=== PATIENT | female | born 1980 | race Caucasian/White ===

== ENCOUNTER 2018-05-09 03:56 | Inpatient (IN) | payer OTHER ==
[2018-05-09] MEDS ORDERED: Nalbuphine 10 MG/1 ML Vial IVPUSH PRN (05:19)
[2018-05-09] MEDS ORDERED: Misoprostol 200 MCG Tab PO PRN (05:19)
[2018-05-09] MEDS ORDERED: Sodium Chloride 0.9% 2.5 ML Syringe FLUSH PRN (05:19)
[2018-05-09] MEDS ORDERED: Butorphanol 1 MG/ML SDV IVPUSH PRN (05:19)
[2018-05-09] MEDS ORDERED: Sodium Chloride 0.9% 10 ML Syringe FLUSH PRN (05:19)
[2018-05-09] MEDS ORDERED: Tranexamic Acid 1,000 MG in Sodium Chloride 0.9% 100 ML IV PRN (05:19)
[2018-05-09] MEDS ORDERED: Methylergonovine 0.2 MG/1 ML Amp IM PRN ×2 (05:19→11:50)
[2018-05-09] MEDS ORDERED: Carboprost Tromethamine 250 MCG/1 ML Amp IM PRN (05:19)
[2018-05-09] MEDS ORDERED: Water For Irrigation,Sterile 1,000 ML Container IRR PRN (05:19)
[2018-05-09] MEDS ORDERED: Lidocaine 1% 50 ML MDV INJECT PRN (05:19)
[2018-05-09] MEDS ORDERED: Oxytocin/0.9 % Sodium Chloride 30 UNIT/500 ML BAG IV SCH ×2 (05:30→09:00)
[2018-05-09] MEDS ORDERED: Lidocaine HCl/EPINEPHrine 5 ML IJ ONE (06:42)
[2018-05-09] MEDS: Lactated Ringers 1,000 ML IV SCH ×2 (07:08→07:38)
[2018-05-09] MEDS ORDERED: Terbutaline 1 MG/ML SDV SUBCUT PRN (08:52)
--- NOTE | 2018-05-09 09:10 | PCM.PREANE ---
Preanesthetic Assessment - Procedure Proposed Procedure: for continuous labor epidural insertion - Anesthesia/Transfusion/Family Hx Anesthesia History: Prior Anesthesia Without Reaction (three previous labor epidurals without problems. [place] for knee surgery without problems) Family History of Anesthesia Reaction: No Transfusion History: No Prior Transfusion(s) - Review of Systems General: No Symptoms (In [id number]. 39.2weeks) Pulmonary: No Symptoms Cardiovascular: No Symptoms (GERD with ) Gastrointestinal: No Symptoms Neurological: No Symptoms Other: Reports: None - Physical Assessment NPO Status Date: 05/09/18 NPO Status Time: 03:30 (water and ice since then) Pulse: 83 (FHTs = 132) O2 Sat by Pulse Oximetry: 96 Respiratory Rate: 20 Blood Pressure: 117/81 Height: 1.75 m Weight: 86.636 kg ASA Class: 2E Mental Status: Alert & Oriented x3 Airway Class: Mallampati = 1 Dentition: Reports: Normal Dentition Thyro-Mental Finger Breadths: 2 Mouth Opening Finger Breadths: 3 ROM/Head Extension: Full Lungs: Clear to Auscultation, Normal Respiratory Effort Cardiovascular: Regular Rate, Regular Rhythm, No Murmurs - Lab Values: Laboratory Last Values WBC 8.02 K/uL (4.0-11.0) 05/09/18 05:33 RBC 3.06 M/uL (4.30-5.90) L 05/09/18 05:33 Hgb 9.6 g/dL (12.0-16.0) L 05/09/18 05:33 Hct 28.2 % (36.0-46.0) L 05/09/18 05:33 MCV 92.2 fL (80.0-98.0) 05/09/18 05:33 MCH 31.4 pg (27.0-32.0) 05/09/18 05:33 MCHC 34.0 g/dL (31.0-37.0) 05/09/18 05:33 RDW Std Deviation 43.3 fl (28.0-62.0) 05/09/18 05:33 RDW Coeff of Bella 13 % (11.0-15.0) 05/09/18 05:33 Plt Count 180 K/uL (150-400) 05/09/18 05:33 MPV 11.60 fL (7.40-12.00) 05/09/18 05:33 Nucleated RBC % 0.0 /100WBC 05/09/18 05:33 Nucleated RBCs # 0 K/uL 05/09/18 05:33 Blood Type A POSITIVE 05/09/18 05:33 Antibody Screen NEGATIVE 05/09/18 05:33 - Allergies Allergies/Adverse Reactions: Allergies Allergy/AdvReac Type Severity Reaction Status Date / Time No Known Allergies Allergy Verified 05/09/18 04:15 - Blood Blood Available: No Product(s) Available: None - Anesthesia Plan Pre-Op Medication Ordered: None - Acknowledgements Anesthesia Type Planned: Epidural (Plan: continuous labor epidural insertion. Discussed with patient and . All questions answered. 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: Musculoskeletal History: Reports: Other (See Below) Other Musculoskeletal History: Knee surgery - SUBSTANCE USE Smoking Status *Q: Never Smoker Second Hand Smoke Exposure: No Recreational Drug Use History: No - CURRENT (IN HOUSE) MEDS Current Meds: Current Medications Butorphanol Tartrate (Stadol) 1 mg IVPUSH Q1H PRN PRN Reason: Pain Carboprost Tromethamine (Hemabate Ds) 250 mcg IM ASDIRECTED PRN PRN Reason: Post Hemorrhage Tranexamic Acid 1,000 mg/ (Sodium Chloride) 110 mls @ 660 mls/hr IV ONETIME PRN PRN Reason: Bleeding Lactated Ringer's (Ringers, Lactated) 1,000 mls @ 150 mls/hr IV ASDIRECTED HAKEEM Last Admin: 05/09/18 07:38 Dose: 150 mls/hr Oxytocin/Sodium Chloride (Oxytocin 30 Unit/500 Ml-Ns) 30 unit in 500 mls @ 500 mls/hr IV TITRATE HAKEEM Oxytocin/Sodium Chloride (Oxytocin 30 Unit/500 Ml-Ns) 30 unit in 500 mls @ 2 mls/hr IV TITRATE HAKEEM; Protocol Lidocaine HCl (Xylocaine 1%) 50 ml INJECT ONETIME PRN PRN Reason: Laceration repair Methylergonovine Maleate (Methergine) 0.2 mg IM ASDIRECTED PRN PRN Reason: Post Hemorrhage Misoprostol (Cytotec) 200 mcg PO ONETIME PRN PRN Reason: Post Hemorrhage Nalbuphine HCl (Nubain) 10 mg IVPUSH Q1H PRN PRN Reason: Pain (severe 7-10) Sodium Chloride (Saline Flush) 10 ml FLUSH ASDIRECTED PRN PRN Reason: Keep Vein Open Sodium Chloride (Saline Flush) 2.5 ml FLUSH ASDIRECTED PRN PRN Reason: Keep Vein Open Sterile Water (Sterile Water For Irrigation) 1,000 ml IRR ASDIRECTED PRN PRN Reason: delivery Terbutaline Sulfate (Brethine) 0.25 mg SUBCUT ASDIRECTED PRN PRN Reason: Tacysystole Discontinued Medications Fentanyl/Bupivacaine HCl (Fmbajqxk-Npydh-Ii 2 Mcg/Ml-0.125%) Confirm Administered Dose 100 mls @ as directed .ROUTE .STK-MED ONE Stop: 05/09/18 06:42 Lidocaine/Epinephrine (Lidocaine 1.5%-Epi 1:200,000) Confirm Administered Dose 5 ml IJ .STK-MED ONE Stop: 05/09/18 06:43
--- NOTE | 2018-05-09 11:49 | PCM.DEL ---
L & D Note - General Info Date of Service: 05/09/18 Mother's Due Date: 05/14/18 - Delivery Note Labor: Spontaneous, Augmented by Oxytocin Delivery Outcome: Livebirth Infant Delivery Method: Spontaneous Vaginal Delivery-Single Presentation: Left Occiput Anterior (GRISELDA) Nuchal Cord: None (short cord) Prep: Other Anesthesia Type: Epidural, Pudendal Amniotic Fluid Description: Clear Episiotomy Type: None Laceration: None Placenta: Intact, Spontaneous Cord: 3 Vessels Estimated Blood Loss: 200 Resuscitation Needed: No : Suctioned Score 1 min: 8 Score 5 min: 9 Second Stage Interventions: Reports: Pushing, Pulls Own Legs Back (liveborn male 8/9 weight 4480 grams) - General Info Date of Service: 05/09/18 - Patient Data Vitals - Most Recent: Last Vital Signs Temp Pulse 83 05/09/18 09:10 Resp 20 05/09/18 09:10 BP 117/81 05/09/18 09:10 Pulse Ox 96 05/09/18 09:10 Weight - Most Recent: 86.636 kg Lab Results Last 24 Hours: Laboratory Results - last 24 hr 05/09/18 05/09/18 Range/Units 05:33 05:33 WBC 8.02 (4.0-11.0) K/uL RBC 3.06 L (4.30-5.90) M/uL Hgb 9.6 L (12.0-16.0) g/dL Hct 28.2 L (36.0-46.0) % MCV 92.2 (80.0-98.0) fL MCH 31.4 (27.0-32.0) pg MCHC 34.0 (31.0-37.0) g/dL RDW Std Deviation 43.3 (28.0-62.0) fl RDW Coeff of Bella 13 (11.0-15.0) % Plt Count 180 (150-400) K/uL MPV 11.60 (7.40-12.00) fL Nucleated RBC % 0.0 /100WBC Nucleated RBCs # 0 K/uL Blood Type A POSITIVE Antibody Screen NEGATIVE Med Orders - Current: Current Medications Butorphanol Tartrate (Stadol) 1 mg IVPUSH Q1H PRN PRN Reason: Pain Carboprost Tromethamine (Hemabate Ds) 250 mcg IM ASDIRECTED PRN PRN Reason: Post Hemorrhage Tranexamic Acid 1,000 mg/ (Sodium Chloride) 110 mls @ 660 mls/hr IV ONETIME PRN PRN Reason: Bleeding Lactated Ringer's (Ringers, Lactated) 1,000 mls @ 150 mls/hr IV ASDIRECTED HAKEEM Last Admin: 05/09/18 07:38 Dose: 150 mls/hr Oxytocin/Sodium Chloride (Oxytocin 30 Unit/500 Ml-Ns) 30 unit in 500 mls @ 500 mls/hr IV TITRATE HAKEEM Oxytocin/Sodium Chloride (Oxytocin 30 Unit/500 Ml-Ns) 30 unit in 500 mls @ 2 mls/hr IV TITRATE HAKEEM; Protocol Last Titration: 05/09/18 10:40 Dose: 2 munits/min, 2 mls/hr Lidocaine HCl (Xylocaine 1%) 50 ml INJECT ONETIME PRN PRN Reason: Laceration repair Methylergonovine Maleate (Methergine) 0.2 mg IM ASDIRECTED PRN PRN Reason: Post Hemorrhage Misoprostol (Cytotec) 200 mcg PO ONETIME PRN PRN Reason: Post Hemorrhage Nalbuphine HCl (Nubain) 10 mg IVPUSH Q1H PRN PRN Reason: Pain (severe 7-10) Sodium Chloride (Saline Flush) 10 ml FLUSH ASDIRECTED PRN PRN Reason: Keep Vein Open Sodium Chloride (Saline Flush) 2.5 ml FLUSH ASDIRECTED PRN PRN Reason: Keep Vein Open Sterile Water (Sterile Water For Irrigation) 1,000 ml IRR ASDIRECTED PRN PRN Reason: delivery Terbutaline Sulfate (Brethine) 0.25 mg SUBCUT ASDIRECTED PRN PRN Reason: Tacysystole Discontinued Medications Fentanyl/Bupivacaine HCl (Qpdeqcod-Joris-Cj 2 Mcg/Ml-0.125%) Confirm Administered Dose 100 mls @ as directed .ROUTE .STAha Mobile-MED ONE Stop: 05/09/18 06:42 Lidocaine/Epinephrine (Lidocaine 1.5%-Epi 1:200,000) Confirm Administered Dose 5 ml IJ .STK-MED ONE Stop: 05/09/18 06:43 - Problem List & Annotations (1) Elderly multigravida delivered SNOMED Code(s): 285913926, 709988512 Code(s): O09.529 - SUPERVISION OF ELDERLY MULTIGRAVIDA, UNSPECIFIED TRIMESTER Status: Acute Current Visit: Yes (2) macrosomia, delivered, current hospitalization SNOMED Code(s): 11029592, 730077631, 497804598 Code(s): O36.60X0 - MATERNAL CARE FOR EXCESS GROWTH, UNSP TRIMESTER, UNSP Status: Acute Current Visit: Yes (3) Vaginal delivery SNOMED Code(s): 973503633 Code(s): O80 - ENCOUNTER FOR FULL-TERM UNCOMPLICATED DELIVERY Status: Acute Current Visit: No - Problem List Review Problem List Initiated/Reviewed/Updated: Yes - My Orders Last 24 Hours: My Active Orders 05/09/18 04:17 Patient Status [ADT] Routine Up ad Alpa [RC] ASDIRECTED Vital Signs [RC] PER UNIT ROUTINE Resuscitation Status Routine 05/09/18 05:19 Butorphanol [Stadol] 1 mg IVPUSH Q1H PRN Carboprost Tromethamine [Hemabate DS] 250 mcg IM ASDIRECTED PRN Lidocaine 1% [Xylocaine 1%] 50 ml INJECT ONETIME PRN Methylergonovine [Methergine] 0.2 mg IM ASDIRECTED PRN Nalbuphine [Nubain] 10 mg IVPUSH Q1H PRN Sodium Chloride 0.9% [Saline Flush] 10 ml FLUSH ASDIRECTED PRN Sodium Chloride 0.9% [Saline Flush] 2.5 ml FLUSH ASDIRECTED PRN Tranexamic Acid [Cyklokapron] 1,000 mg Sodium Chloride 0.9% [Normal Saline] 100 ml IV ONETIME Water For Irrigation,Sterile [Sterile Water for Irrigation] 1,000 ml IRR ASDIRECTED PRN miSOPROStol [Cytotec] 200 mcg PO ONETIME PRN 05/09/18 05:20 Patient Status [ADT] Routine Heart Tones [RC] CONTINUOUS Non Stress Test [RC] PER UNIT ROUTINE May Shower [RC] ASDIRECTED Notify Provider [RC] PRN Up ad Alpa [RC] ASDIRECTED Vaginal Exam [RC] PRN Vital Signs [RC] PER UNIT ROUTINE Scalp Electrode [WOMSER] Per Unit Routine Peripheral IV Insertion Adult [OM.PC] Routine 05/09/18 05:30 Lactated Ringers [Ringers, Lactated] 1,000 ml IV ASDIRECTED Oxytocin/0.9 % Sodium Chloride [Oxytocin 30 Unit/500 ML-NS] 30 unit in 500 ml IV TITRATE 05/09/18 08:52 Bedrest Bathroom Privileges [RC] ASDIRECTED Communication Order [RC] ASDIRECTED Communication Order [RC] ASDIRECTED Notify Provider [RC] PRN Notify Provider [RC] STAT Vital Signs [RC] PER UNIT ROUTINE Terbutaline [Brethine] 0.25 mg SUBCUT ASDIRECTED PRN 05/09/18 09:00 Oxytocin/0.9 % Sodium Chloride [Oxytocin 30 Unit/500 ML-NS] 30 unit in 500 ml IV TITRATE Medication Administration Instruction [OM.PC] Q3H 05/09/18 Breakfast Regular Diet [DIET]
[2018-05-09] MEDS ORDERED: Lanolin 100% Cream 7 GM Tube TOP PRN (11:50)
[2018-05-09] MEDS ORDERED: Docusate Sodium 100 MG Cap PO PRN (11:50)
[2018-05-09] MEDS ORDERED: Acetaminophen 500 MG Tab PO PRN ×2 (11:50)
[2018-05-09] MEDS ORDERED: Witch Hazel Medicated Pads 40/Jar TOP PRN (11:50)
[2018-05-09] MEDS ORDERED: Bisacodyl 10 MG Supp RECTAL PRN (11:50)
[2018-05-09] MEDS ORDERED: oxyCODONE 5 MG Tab PO PRN (11:50)
[2018-05-09] MEDS ORDERED: Ibuprofen 400 MG Tab PO PRN (11:50)
[2018-05-09] MEDS ORDERED: Benzocaine/Menthol 20%-0.5% Spray 78 GM Cannister TOP PRN (11:50)
[2018-05-09] MEDS: Ibuprofen 800 MG Tab PO PRN ×2 (12:55→19:43)
--- NOTE | 2018-05-09 13:26 | OR ---
SURGEON: Rowan Vaughn M.D. DATE OF PROCEDURE: 05/09/2018 PREOPERATIVE DIAGNOSES: 1. 39 and 2/7-week intrauterine . 2. Active spontaneous labor, protracted. POSTOPERATIVE DIAGNOSES: 1. 39 and 2/7-week intrauterine . 2. Active spontaneous labor, protracted. PROCEDURE: Pitocin augmentation of labor, artificial rupture of membranes, term spontaneous vaginal delivery. ANESTHESIA: Epidural and pudendal block. ESTIMATED BLOOD LOSS: Less than 200 mL. FINDINGS: Live-born male, scores 8 and 9, weighing 4480 g. Placenta spontaneous, Schultze intact with 3 vessels, extremely short cord noted. COMPLICATIONS: None known. DISPOSITION: Mother and baby are in LDRP in good condition. BRIEF HISTORY: This is a 37-year-old female, she is G5, P 3-0-1-3. She presents at 39 and 2/7 weeks' gestation in active spontaneous labor progressing to 5 to 6 cm. She received an epidural for pain control. She then had artificial rupture of membranes. She had poor pain relief with her epidural. She progressed to 6 to 7 cm with irregular contractions following, and she did have Pitocin augmentation up to a maximum of 2 milliunits per minute. With this, she progressed to complete. DESCRIPTION OF PROCEDURE: With the patient in dorsal lithotomy position, the patient began to push; however, she found it very difficult to push due to pain as the head reached the perineum. Therefore, I did offer to perform pudendal block, which she agreed to. Pudendal block was placed 1 cm medial and inferior to the spinous process on the right and the left, 10 mL of 1% lidocaine were injected on each side. With this, she had good perineal pain control. She then continued to push over 3 more contractions to a 5+ station. At which time, the head was delivered spontaneously and atraumatically over the perineum with support. Due to suspected macrosomia, Delfin maneuver was performed as well as placing the patient in the low supine position with rotation of the anterior shoulder, which was performed without difficulty. The anterior and posterior shoulders then delivered without any difficulty, and the was delivered vaginally and was bulb suctioned by nose and mouth. After the cord had ceased to pulsate, it was doubly clamped and cut. The infant was handed to the mother in the presence of the nurse attending delivery. The is a liveborn male, scores 8 and 9, weighing 4480 g. Cord blood was collected for cord ABGs as well as routine cord blood sampling. Pitocin was initiated after delivery of the infant to assist with delivery of the placenta, which was delivered spontaneously. Schultze intact with 3 vessels. Upon inspection of pelvis and perineum, there were no periurethral, vaginal sidewall, cervical, rectal, or perineal lacerations. EBL was less than 200 mL. There were no known complications. Mother and baby are in LDRP in good condition. LIZANDRO / PARMJIT /[id number]
[2018-05-10] MEDS: Ibuprofen 800 MG Tab PO PRN (04:11)
--- NOTE | 2018-05-10 07:05 | PCM.PNPP ---
- General Info Date of Service: 05/10/18 Functional Status: Reports: Pain Controlled, Tolerating Diet, Ambulating, Urinating - Review of Systems General: Reports: No Symptoms HEENT: Reports: No Symptoms Pulmonary: Reports: No Symptoms Cardiovascular: Reports: No Symptoms Gastrointestinal: Reports: No Symptoms Genitourinary: Reports: No Symptoms Musculoskeletal: Reports: No Symptoms Skin: Reports: No Symptoms Neurological: Reports: No Symptoms Psychiatric: Reports: No Symptoms - General Info Date of Service: 05/10/18 - Patient Data Vital Signs - Most Recent: Last Vital Signs Temp 36.4 C 05/10/18 04:05 Pulse 82 05/10/18 04:05 Resp 18 05/10/18 04:05 BP 115/74 05/10/18 04:05 Pulse Ox 95 05/10/18 04:05 Weight - Most Recent: 86.636 kg Lab Results - Last 24 Hours: Laboratory Results - last 24 hr 05/09/18 05/10/18 Range/Units 11:09 05:38 Hgb 8.6 L (12.0-16.0) g/dL Hct 25.7 L (36.0-46.0) % Cord ABG pH 7.329 (7.18-7.38) Cord ABG Base Excess -5 (-10--2) Cord VBG pH 7.362 (7.25-7.45) Cord VBG Base Excess -5 (-10--2) Med Orders - Current: Current Medications Acetaminophen (Tylenol Extra Strength) 500 mg PO Q4H PRN PRN Reason: Pain Last Admin: 05/09/18 17:08 Dose: 500 mg Acetaminophen (Tylenol Extra Strength) 1,000 mg PO Q4H PRN PRN Reason: Pain Benzocaine/Menthol (Dermoplast Pain Relief 20%-0.5% [place]) 78 gm TOP ASDIRECTED PRN PRN Reason: Perineal Comfort Measure Bisacodyl (Dulcolax) 10 mg RECTAL ONETIME PRN PRN Reason: Constipation Docusate Sodium (Colace) 100 mg PO BID PRN PRN Reason: Constipation Emollient Ointment (Lansinoh Hpa) 0 gm TOP ASDIRECTED PRN PRN Reason: Sore Nipples Ibuprofen (Motrin) 400 mg PO Q4H PRN PRN Reason: Pain Ibuprofen (Motrin) 800 mg PO Q6H PRN PRN Reason: Pain Last Admin: 05/10/18 04:11 Dose: 800 mg Methylergonovine Maleate (Methergine) 0.2 mg IM ONETIME PRN PRN Reason: Excessive Vaginal Bleeding Oxycodone HCl (Oxycodone) 5 mg PO Q2H PRN PRN Reason: Pain Witch Lynette (Tucks) 1 pad TOP ASDIRECTED PRN PRN Reason: comfort care Discontinued Medications Butorphanol Tartrate (Stadol) 1 mg IVPUSH Q1H PRN PRN Reason: Pain Carboprost Tromethamine (Hemabate Ds) 250 mcg IM ASDIRECTED PRN PRN Reason: Post Hemorrhage Tranexamic Acid 1,000 mg/ (Sodium Chloride) 110 mls @ 660 mls/hr IV ONETIME PRN PRN Reason: Bleeding Lactated Ringer's (Ringers, Lactated) 1,000 mls @ 150 mls/hr IV ASDIRECTED HAKEEM Last Admin: 05/09/18 07:38 Dose: 150 mls/hr Oxytocin/Sodium Chloride (Oxytocin 30 Unit/500 Ml-Ns) 30 unit in 500 mls @ 500 mls/hr IV TITRATE HAKEEM Fentanyl/Bupivacaine HCl (Vikpngjp-Yoosw-Aw 2 Mcg/Ml-0.125%) Confirm Administered Dose 100 mls @ as directed .ROUTE .STK-MED ONE Stop: 05/09/18 06:42 Last Admin: 05/09/18 16:54 Dose: Not Given Oxytocin/Sodium Chloride (Oxytocin 30 Unit/500 Ml-Ns) 30 unit in 500 mls @ 2 mls/hr IV TITRATE HAKEEM; Protocol Last Titration: 05/09/18 10:50 Dose: 0 munits/min, 0 mls/hr Lidocaine HCl (Xylocaine 1%) 50 ml INJECT ONETIME PRN PRN Reason: Laceration repair Last Admin: 05/09/18 11:05 Dose: 50 ml Lidocaine/Epinephrine (Lidocaine 1.5%-Epi 1:200,000) Confirm Administered Dose 5 ml IJ .STK-MED ONE Stop: 05/09/18 06:43 Last Admin: 05/09/18 16:54 Dose: Not Given Methylergonovine Maleate (Methergine) 0.2 mg IM ASDIRECTED PRN PRN Reason: Post Hemorrhage Misoprostol (Cytotec) 200 mcg PO ONETIME PRN PRN Reason: Post Hemorrhage Nalbuphine HCl (Nubain) 10 mg IVPUSH Q1H PRN PRN Reason: Pain (severe 7-10) Sodium Chloride (Saline Flush) 10 ml FLUSH ASDIRECTED PRN PRN Reason: Keep Vein Open Sodium Chloride (Saline Flush) 2.5 ml FLUSH ASDIRECTED PRN PRN Reason: Keep Vein Open Sterile Water (Sterile Water For Irrigation) 1,000 ml IRR ASDIRECTED PRN PRN Reason: delivery Terbutaline Sulfate (Brethine) 0.25 mg SUBCUT ASDIRECTED PRN PRN Reason: Tacysystole - Infant Interaction Disposition, : Maybeury in Room with Family Interaction: Holding Infant Feeding: Breastfed ; Nursed Well Support Person: - Recovery Exam Fundal Tone: Firm Fundal Level: At Umbilicus Fundal Placement: Midline Lochia Amount: Scant Lochia Color: Rubra/Red Perineum Description: Intact, Minimal Bruising/Swelling Episiotomy/Laceration: None Bladder Status: Voiding Urinary Elimination: Voided - Exam Neck: Supple Lungs: Normal Respiratory Effort GI/Abdominal Exam: Soft, Non-Tender, No Distention Extremities: Normal Inspection, Non-Tender, No Pedal Edema Skin: Warm, Dry, Intact Neurological: No New Focal Deficit Psy/Mental Status: Alert, Normal Affect, Normal Mood - Problem List & Annotations (1) Elderly multigravida delivered SNOMED Code(s): 474343546, 500543805 Code(s): O09.529 - SUPERVISION OF ELDERLY MULTIGRAVIDA, UNSPECIFIED TRIMESTER Status: Acute Current Visit: Yes (2) macrosomia, delivered, current hospitalization SNOMED Code(s): 99985756, 551206006, 869320211 Code(s): O36.60X0 - MATERNAL CARE FOR EXCESS GROWTH, UNSP TRIMESTER, UNSP Status: Acute Current Visit: Yes (3) Vaginal delivery SNOMED Code(s): 865829622 Code(s): O80 - ENCOUNTER FOR FULL-TERM UNCOMPLICATED DELIVERY Status: Acute Current Visit: No - Problem List Review Problem List Initiated/Reviewed/Updated: Yes - My Orders Last 24 Hours: My Active Orders 05/09/18 08:52 Bedrest Bathroom Privileges [RC] ASDIRECTED Communication Order [RC] ASDIRECTED Communication Order [RC] ASDIRECTED Notify Provider [RC] PRN Notify Provider [RC] STAT Vital Signs [RC] PER UNIT ROUTINE 05/09/18 11:50 Patient Status [ADT] Routine May Shower [RC] ASDIRECTED Up ad Alpa [RC] ASDIRECTED Vital Signs [RC] PER UNIT ROUTINE Acetaminophen [Tylenol Extra Strength] 1,000 mg PO Q4H PRN Acetaminophen [Tylenol Extra Strength] 500 mg PO Q4H PRN Benzocaine/Menthol [Dermoplast Pain Relief 20%-0.5% [place]] 78 gm TOP ASDIRECTED PRN Bisacodyl [Dulcolax] 10 mg RECTAL ONETIME PRN Docusate Sodium [Colace] 100 mg PO BID PRN Ibuprofen [Motrin] 400 mg PO Q4H PRN Ibuprofen [Motrin] 800 mg PO Q6H PRN Lanolin [Lansinoh HPA] See Dose Instructions TOP ASDIRECTED PRN Methylergonovine [Methergine] 0.2 mg IM ONETIME PRN Witch Lynette [Tucks] 1 pad TOP ASDIRECTED PRN oxyCODONE 5 mg PO Q2H PRN Assess Lochia [WOMSER] Per Unit Routine Assess Uterine Involution [WOMSER] Per Unit Routine Peripheral IV Discontinue [OM.PC] Routine Resuscitation Status Routine 05/09/18 Lunch Regular Diet [DIET] - Assessment Assessment:: POD#1 after , stable minimal lochia. is going well, pain is minimal. Denies dizziness or chest pain - Plan Plan:: Continue care, she is instructed to continue iron with vitamins, Hgb 9.6 on admission, now 8.6. She would like to stay until tomorrow.
[2018-05-10 12:08] VITALS: BP 117/81
--- NOTE | 2018-05-10 12:08 | PCM48HPAN ---
Post Anesthesia Note - EVALUATION WITHIN 48HRS OF ANESTHETIC Vital Signs in Normal Range: Yes Patient Participated in Evaluation: Yes Respiratory Function Stable: Yes Airway Patent: Yes Cardiovascular Function Stable: Yes Hydration Status Stable: Yes Pain Control Satisfactory: Yes Nausea and Vomiting Control Satisfactory: Yes Pulse Rate: 90 (FHTs = 132) SaO2: 96 Resp Rate: 20 Temperature: 36.8 C Blood Pressure: 117/81 - COMMENTS/OBSERVATIONS Free Text/Narrative:: awake, alert, vitals stable. Good post op DELON.
== END 2018-05-10 14:30 | disposition home or self-care (01) | DRG 807 ==
LOC: MW.OBCHECK 03:56 → MW.OB 03:58 → MW.OBCHECK 05:20 → OBSVTOIN 11:50 → MW.OB 16:31
PROVIDERS: ADMIT Obstetrics & Gynecology; ATTEND Obstetrics & Gynecology
PROC: 10907ZC Drainage of Amniotic Fluid, Therapeutic from Products of Conception, Via Natural or Artificial Opening (ICD-10-PCS; principal; 2018-05-09)
PROC: 10E0XZZ Delivery of Products of Conception, External Approach (ICD-10-PCS; principal; 2018-05-09)
PROC: 6A550ZT Pheresis of Cord Blood Stem Cells, Single (ICD-10-PCS; principal; 2018-05-09)
PROC: 3E0R3BZ Introduction of Anesthetic Agent into Spinal Canal, Percutaneous Approach (ICD-10-PCS; 2018-05-09)
PROC: 00HU33Z Insertion of Infusion Device into Spinal Canal, Percutaneous Approach (ICD-10-PCS; 2018-05-09)
DX: O69.3XX0 Labor and delivery complicated by short cord, not applicable or unspecified (principal); Z37.0 Single live birth; Z3A.39 39 weeks gestation of pregnancy; O36.63X0 Maternal care for excessive fetal growth, third trimester, not applicable or unspecified; O99.62 Diseases of the digestive system complicating childbirth; K21.9 Gastro-esophageal reflux disease without esophagitis
CPT/HCPCS: 36415; 51702; 59025; 59409; 82803; 85014; 85018; 85027; 86850; 86900; 86901; A9270-GY; J2590; J7120